=== PATIENT | female | born 1995 | race African-American/Black ===

== ENCOUNTER → 2023-05-25 | Emergency (ER) | payer MEDICAID, OTHER ==
[~2023-05-25] VITALS: Ht 162.6 cm; Wt 140.6 kg
[~2023-05-25] MED LIST: ACETAMINOPHEN 325 MG TABLET ONE; ACETAMINOPHEN ES 500 MG TABLET ONE; CYCL5TAB PO; CYCLOBENZAPRINE 10 MG TABLET ONE; IBUPROFEN 400 MG TABLET ONE
[2023-05-25] MEDS: ACETAMINOPHEN ES 500 MG TABLET PO ONE (06:38)
[2023-05-25] MEDS: CYCLOBENZAPRINE 10 MG TABLET PO ONE (06:38)
[2023-05-25] MEDS: IBUPROFEN 400 MG TABLET PO ONE (08:18)
[2023-05-25] MEDS: ACETAMINOPHEN 650 MG/20.3 ML UDC PO ONE (08:30)
[2023-05-25 09:52] VITALS: BP 137/88; TEMP 98; O2SAT 99
== END | disposition home or self-care (01) ==
LOC: ER 05:37
DX: M54.50 Low back pain, unspecified (principal); V89.2XXA Person injured in unspecified motor-vehicle accident, traffic, initial encounter; Y93.89 Activity, other specified; Y92.89 Other specified places as the place of occurrence of the external cause; Y99.8 Other external cause status
CPT/HCPCS: 72110-TC; 73590-TC; 73610-TC